=== PATIENT | female | born 1955 | race Caucasian/White ===

== ENCOUNTER 2017-02-15 20:01 | Inpatient (IN) | payer OTHER ==
[~2017-02-15] VITALS: Ht 167.6 cm; Wt 51.3 kg
[~2017-02-15 20:01] MED LIST: AMOX500T2 PO; CLAR500T PO
[2017-02-15] MEDS ORDERED: IV NS 0.9% 500 ML IV ONE (20:30)
[2017-02-15] MEDS ORDERED: IV NS 0.9% 500 ML BAG IV ONE (20:30)
[2017-02-15] MEDS ORDERED: IV SET PRIMARY 1 EA INFUS.SET MC ONE (20:30)
--- NOTE | 2017-02-15 20:30 | NUR ---
PT BIB C/O L ARM TINGLING WORSE THAN USUAL TODAY AND PER , SLURRED SPEECH EARLIER TODAY. NO FACIAL DROOP OR SLURRED SPEECH NOTED. L MANAGER MOLECULAR STRENGTH WEAK, L ARM STRENGTH WEAK. ALL OTHER EXTREMITIES STRENGTH INTACT. RESP EVEN UNLABORED. SKIN WARM NONDIAPHORETIC. DENIES PAIN. A/OX4. IN ER BED 14 ON MONITOR.
[2017-02-15 20:33] LABS: BASOPHILS % (AUTO) 0.6 % (0.0-2.0); EOSINOPHILS # (AUTO) 0.2 /CMM (0.0-0.7); EOSINOPHILS % (AUTO) 3.7 % (0.0-6.0); HEMATOCRIT 42 % (33-45); LYMPHOCYTES # (AUTO) 1.5 /CMM (0.8-4.8); LYMPHOCYTES % (AUTO) 24.1 % (20.0-44.0); MEAN CORPUSCULAR HEMOGLOBIN 30 PG (26.0-33.0); MEAN CORPUSCULAR HGB CONC 33 g/dl (31.0-36.0); MEAN CORPUSCULAR VOLUME 90 fL (82-100); MONOCYTES # (AUTO) 0.3 /CMM (0.1-1.30); MONOCYTES % (AUTO) 5.2 % (2.0-12.0); NEUTROPHILS # (AUTO) 4.3 /CMM (1.8-8.9); NEUTROPHILS % (AUTO) 66.4 % (43.0-81.0); PLATELET COUNT (AUTO) 238 /CMM (150-450); RDW COEFFICIENT OF VARIATION 12.3 (11.5-15.0); RED BLOOD CELL COUNT(AUTO) 4.65 MIL/uL (4.0-5.2); WHITE BLOOD COUNT (AUTO) 6.3 K/uL (4.3-11.0)
[2017-02-15 20:43] LABS: CARBON DIOXIDE 27 mmol/L (21-32); CHLORIDE 107 mmol/L (98-107); CREATININE 0.7 mg/dL (0.6-1.3); GFR 86 mL/min (>60); GLUCOSE 98 mg/dL (74-106); POTASSIUM 3.4 mmol/L (3.5-5.1); SODIUM SERUM 141 mmol/L (136-145); UREA NITROGEN, BLOOD 14 mg/dL (7-18)
[2017-02-15 20:46] LABS: INR 0.96 (0.87-1.13)
[2017-02-15 20:49] LABS: ALANINE AMINOTRANSFERASE 19 U/L (12-78); ALBUMIN 3.2 g/dL (3.4-5.0); ALCOHOL, BLOOD < 3 mg/dL (0-0); ALKALINE PHOSPHATASE 91 U/L (46-116); ASPARTATE AMINOTRANSFERASE 17 U/L (15-37); BILIRUBIN,DIRECT 0.1 mg/dL (0.0-0.2); BILIRUBIN,TOTAL 0.2 mg/dL (0.2-1.0); TOTAL PROTEIN, SERUM 6.3 g/dL (6.4-8.2)
[2017-02-15 20:51] LABS: TROPONIN I 0.018 ng/mL (0.00-0.056)
[2017-02-15 21:00] LABS: APPEARANCE,URINE Clear (CLEAR); BILIRUBIN,URINE Negative (NEGATIVE); BLOOD, URINE Negative Ery/uL (NEGATIVE); COLOR,URINE Yellow (YELLOW); KETONES,URINE Negative (NEGATIVE); LEUKOCYTE ESTERASE ,URINE Trace (NEGATIVE); NITRITE, URINE Negative (NEGATIVE); PROTEIN,URINE Negative (NEGATIVE); UGLUCOSE Negative (NEGATIVE); UROBILINOGEN,URINE 0.2 EU/dL (0.2)
[2017-02-15 21:14] LABS: THYROID STIMULATING HORMONE 2.378 uIU/mL (0.358-3.74)
[2017-02-15 21:14] LABS: CANNABINOID, URINE NEGATIVE (NEGATIVE); PHENCYCLIDINE SCREEN,URINE NEGATIVE (NEGATIVE)
--- NOTE | 2017-02-15 21:26 | NUR ---
PATIENT DX STROKE WILL GO TO TELE [phone]
[2017-02-15 21:41] LABS: ADD URINE CULTURE NO; BACTERIA,URINE Few /HPF (None Seen); MUCUS,URINE Few /LPF (None Seen); RBC,URINE 0-2 /HPF (0-2); SQUAMOUS EPITHELIAL CELL,UR Moderate /HPF (None Seen); URINE AMORPHOUS URATE Moderate /HPF (None Seen)
--- NOTE | 2017-02-15 21:44 | NUR ---
REPORT GIVEN TO MINA MARTINES FOR ADMISSION
[2017-02-15] MEDS ORDERED: NICARDIPINE IN DEXTROSE,ISO-OS 200 ML IV PRN (22:00)
[2017-02-15] MEDS ORDERED: MAGNESIUM HYDROXIDE 30 ML UDC PO PRN (22:00)
[2017-02-15] MEDS ORDERED: NICARDIPINE IN DEXTROSE,ISO-OS 200 ML IV ONE (22:01)
[2017-02-15] MEDS ORDERED: IV SET PRIMARY PUMP SET 1 EA INFUS.SET MC ONE ×2 (22:01→23:49)
--- NOTE | 2017-02-15 22:06 | NUR ---
PAGED DR BRANHAM
--- NOTE | 2017-02-15 22:33 | NUR ---
CARDENE GTT TITRATED TO 7.5MG/HR, BP 153/77
--- NOTE | 2017-02-15 22:45 | NUR ---
RN NOTES RECEIVED REPORT FROM ELECTRIC MILKERS INSTALLERBOBBI REED
--- NOTE | 2017-02-15 22:50 | NUR ---
CARDENE GTT INCREASED TO 10MG/HR, BP 151/70
--- NOTE | 2017-02-15 22:54 | NUR ---
REPORT GIVEN TO IWONA MARTINES FOR ADMISSION
[2017-02-15] MEDS ORDERED: ONDANSETRON HCL/PF 4 MG/2 ML VIAL IVP PRN (23:00)
[2017-02-15] MEDS ORDERED: MAG HYDROX/AL HYDROX/SIMETH 30 ML UDC PO PRN (23:00)
[2017-02-15] MEDS ORDERED: ACETAMINOPHEN 325 MG TABLET PO PRN (23:00)
[2017-02-15] MEDS ORDERED: POTASSIUM CL. PREMIX PERIPHER. 50 ML IV SCH (23:00)
[2017-02-15] MEDS ORDERED: HYDROCODONE/APAP 5/325MG 1 EACH TABLET PO PRN (23:00)
[2017-02-15] MEDS ORDERED: Z GUARD REMEDY 2 OZ OINT TP PRN (23:00)
--- NOTE | 2017-02-15 23:09 | NUR ---
PT RESTING COMFORTABLY; REMAINS AT BASELINE. NAD NOTED.
--- NOTE | 2017-02-15 23:15 | NUR ---
PT TRANSPORTED TO ICU RM 259 IN CRITICAL CONDITION VIA ACLS PROTOCOL
--- NOTE | 2017-02-15 23:20 | NUR ---
RN NOTES PATIENT ARRIVED ON THE UNIT VIA GURNEY. A/O X 3, ON ROOM AIR SATURATING WELL, APPEARS TO BE VERY ANXIOUS. PATIENT IS ON CARDENE DRIP TO KEEP SBP BETWEEN 120-140, CURRENTLY SR/ST WITH HR 90-100'S. VITALS ARE STABLE, SKIN IS INTACT. PT IS CONTINENT, ABLE TO USE BEDSIDE COMMODE WITH ASSISTANCE. RIGHT FOREARM 18G AND LEFT AC 18G BOTH INTACT, ALL FLUSHED AND PATENT, NO S/S OF INFILTRATION/INFECTION, DRESSINGS CDI. BED LOW AND LOCKED, SIDERAILS UP, CALL LIGHT WITHIN REACH. WILL MONITOR CLOSELY
[2017-02-15] MEDS ORDERED: ONDANSETRON HCL/PF 4 MG/2 ML VIAL ONE (23:50)
[2017-02-15] MEDS ORDERED: ZOLPIDEM TARTRATE 5 MG TABLET ONE (23:59)
[2017-02-16] VITALS (63 sets, daily range): BP systolic 106–161; BP diastolic 42–88
[2017-02-16] MEDS ORDERED: NICARDIPINE IN DEXTROSE,ISO-OS 200 ML IV PRN
[2017-02-16] MEDS: ZOLPIDEM TARTRATE 5 MG TABLET PO PRN ×2 (00:13→21:58)
[2017-02-16] MEDS: BLOOD SUGAR DIAGNOSTIC 1 EACH STRIP IN SCH ×4 (00:19→17:21)
[2017-02-16] MEDS ORDERED: NICARDIPINE IN DEXTROSE,ISO-OS 200 ML IV ONE (00:21)
[2017-02-16] MEDS ORDERED: POTASSIUM CHLORIDE 20 MEQ TAB.PRT.SR PO ONE ×2 (00:44→01:00)
--- NOTE | 2017-02-16 01:20 | NUR ---
RN NOTES PATIENT'S LENO NOBLE GAVE CONSENT FOR PATIENT'S 2 BOTTLES OF 10MG DIAZEPAM TABS TO BE TAKEN AWAY FROM PATIENT BAG AND SENT TO PHARMACY. PATIENT MEDICATION CHECK DONE AND SIGNED WITH ROLL WEIGHER RENEE
[2017-02-16 04:34] LABS: BASOPHILS % (AUTO) 0.4 % (0.0-2.0); EOSINOPHILS # (AUTO) 0.2 /CMM (0.0-0.7); EOSINOPHILS % (AUTO) 2.7 % (0.0-6.0); HEMATOCRIT 46 % (33-45); HEMOGLOBIN 15.2 g/dL (11.5-14.8); LYMPHOCYTES # (AUTO) 1.7 /CMM (0.8-4.8); LYMPHOCYTES % (AUTO) 21.7 % (20.0-44.0); MEAN CORPUSCULAR HEMOGLOBIN 30 PG (26.0-33.0); MEAN CORPUSCULAR HGB CONC 33 g/dl (31.0-36.0); MEAN CORPUSCULAR VOLUME 90 fL (82-100); MONOCYTES # (AUTO) 0.4 /CMM (0.1-1.30); MONOCYTES % (AUTO) 5.2 % (2.0-12.0); NEUTROPHILS # (AUTO) 5.5 /CMM (1.8-8.9); PLATELET COUNT (AUTO) 247 /CMM (150-450); RDW COEFFICIENT OF VARIATION 13.2 (11.5-15.0); RED BLOOD CELL COUNT(AUTO) 5.08 MIL/uL (4.0-5.2); WHITE BLOOD COUNT (AUTO) 7.9 K/uL (4.3-11.0)
[2017-02-16 04:47] LABS: CALCIUM, SERUM 8.3 mg/dL (8.5-10.1); CREATININE 0.7 mg/dL (0.6-1.3); MAGNESIUM 1.6 mg/dL (1.8-2.4)
--- NOTE | 2017-02-16 06:30 | NUR ---
RN CLOSING NOTES PT REMAINS STABLE OF THE MOMENT. CARDENE DRIP WAS STOPPED @ 0415, BP REMAINS TO BE WITHIN THE DESIRED RANGE. PT DENIES ANY HEADACHES. LEFT SIDE REMAINS TO BE WEAK BUT ABLE TO STAND ON STEADY GAIT. WILL ENDORSE TO AM RN
[2017-02-16] MEDS ORDERED: BLOOD SUGAR DIAGNOSTIC 1 EACH STRIP IN SCH (07:30)
--- NOTE | 2017-02-16 08:00 | NUR ---
ICU/RN INITIAL NOTES,AM RECEIVED REPORT FROM NIGHT NURSE. PT RESTING IN BED COMFORTABLY. EASILY AWAKENS AND FOLLOWS COMMANDS. PT ON ROOM AIR, NO ACUTE DISTRESS NOTED AT THIS TIME. PT ON TELE, SINUS NO ECTOPY NOTED. PT AMBULATORY, SLIGHT WEAKNESS NOTED, SKIN INTACT, PIV PATENT AND INTACT, NO S/S OF INFECTION OR INFILTRATION NOTED. POTASSIUM REPLACED OVERNIGHT. SWALLOW EVAL PENDING FOR THIS AM. ALL NEEDS WILL BE MET, SAFETY MEASURES TAKEN, BED IN LOW POSITION, SIDE RAILS UP,CALL LIGHT WITHIN REACH.
--- NOTE | 2017-02-16 10:30 | NUR ---
ICU/RN: SWALLOW EVALUATION DONE, PT PASSED, ABLE TO INDEPENDENTLY EAT AND NO S/S OF ASPIRATION NOTED.
--- NOTE | 2017-02-16 12:00 | NUR ---
ICU/RN: PT TAKEN TO CT HEAD PER MD. NO ISSUES NOTED, PT TOLERATED WELL.
[2017-02-16] MEDS ORDERED: hydrALAZINE HCL 25 MG TABLET PO PRN (13:00)
[2017-02-16] MEDS ORDERED: IV SET PRIMARY PUMP SET 1 EA INFUS.SET MC ONE (13:05)
[2017-02-16] MEDS: Magnesium 1GM/D5W 100ML PREMIX 100 ML IV SCH ×2 (13:09→14:28)
[2017-02-16] MEDS: LABETALOL HCL (100MG) 100 MG TABLET PO SCH ×2 (15:23→21:42)
--- NOTE | 2017-02-16 15:43 | NUR ---
PT REFUSING CT SCAN, RN IS AWARE.
[2017-02-16] MEDS ORDERED: IV NS 0.9% 250 ML IV ONE (16:22)
[2017-02-16] MEDS ORDERED: IOHEXOL-350 100 ML VIAL IV ONE (16:22)
--- NOTE | 2017-02-16 16:30 | NUR ---
ICU/RN: ORDERS RECEIVED FOR CTA, OBTAINED CONSENT, PT TAKEN VIA WHEEL CHAIR AND ON MONITOR, PT TOLERATED WELL, NO S/S OF ADVERSE REACTIONS, VSS.
--- NOTE | 2017-02-16 18:37 | NUR ---
ICU/RN ENDING NOTES,AM REPORT WILL BE ENDORSED TO NIGHT NURSE FOR CONTINUATION OF CARE. ALL NEEDS ATTENDED TO, PT ON ROOM AIR, NO DISTRESS NOTED AT THIS TIME. ON TELE, PT SINUS. PT ALERT, AWAKE, ORIENTED TO PERSON, PLACE AND TIME, NO ACUTE DEFICITS NOTED. WILL CLOSELY MONITOR. SAFETY MEASURES TAKEN, BED IN LOW POSITION, SIDE RAILS UP, CALL LIGHT WITHIN REACH. WILL CONTINUE CARE
--- NOTE | 2017-02-16 19:30 | NUR ---
ICU/RN RECEIVED PT AWAKE ALERT OX3.DENIES PAIN OR DISCOMFORT.OFFERS NO COMPLAINTS.
--- NOTE | 2017-02-16 22:00 | NUR ---
ICU/RN OOB TO BEDSIDE COMMODE TO VOID W/ RN IN ATTENDANCE,RETURNED TO BED W/OUT INCIDENCE AND VOIDED 450 CLEAR YELOW URINE.
[2017-02-17] VITALS (18 sets, daily range): BP systolic 99–147; BP diastolic 40–87
[2017-02-17] MEDS: BLOOD SUGAR DIAGNOSTIC 1 EACH STRIP IN SCH ×2 (00:07→06:11)
[2017-02-17 04:29] LABS: BASOPHILS % (AUTO) 0.4 % (0.0-2.0); EOSINOPHILS # (AUTO) 0.2 /CMM (0.0-0.7); EOSINOPHILS % (AUTO) 2.7 % (0.0-6.0); HEMATOCRIT 41 % (33-45); HEMOGLOBIN 13.7 g/dL (11.5-14.8); LYMPHOCYTES # (AUTO) 1.6 /CMM (0.8-4.8); LYMPHOCYTES % (AUTO) 24.6 % (20.0-44.0); MEAN CORPUSCULAR HEMOGLOBIN 30 PG (26.0-33.0); MEAN CORPUSCULAR HGB CONC 34 g/dl (31.0-36.0); MEAN CORPUSCULAR VOLUME 90 fL (82-100); MONOCYTES # (AUTO) 0.4 /CMM (0.1-1.30); MONOCYTES % (AUTO) 5.9 % (2.0-12.0); NEUTROPHILS # (AUTO) 4.3 /CMM (1.8-8.9); NEUTROPHILS % (AUTO) 66.4 % (43.0-81.0); PLATELET COUNT (AUTO) 245 /CMM (150-450); RDW COEFFICIENT OF VARIATION 13.2 (11.5-15.0); RED BLOOD CELL COUNT(AUTO) 4.57 MIL/uL (4.0-5.2); WHITE BLOOD COUNT (AUTO) 6.5 K/uL (4.3-11.0)
[2017-02-17 04:41] LABS: CALCIUM, SERUM 8.1 mg/dL (8.5-10.1); CREATININE 0.9 mg/dL (0.6-1.3); MAGNESIUM 1.8 mg/dL (1.8-2.4); POTASSIUM 3.6 mmol/L (3.5-5.1)
--- NOTE | 2017-02-17 05:42 | NUR ---
ICU/RN VITAL SIGNS STABLE.REFUSED BED BATH.MONITOR SINUS RHYTHM W/OUT ECTOPICS.
--- NOTE | 2017-02-17 08:25 | NUR ---
ICU/RN INITIAL NOTES,AM RECEIVED REPORT FROM NIGHT NURSE. PT RESTING IN BED COMFORTABLY. EASILY AWAKENS AND FOLLOWS COMMANDS. PT ON ROOM AIR, NO ACUTE DISTRESS NOTED AT THIS TIME. PT ON TELE, SINUS RHYTHM/SINUS TANK, NO ECTOPY NOTED. PT AMBULATORY, SLIGHT WEAKNESS NOTED, SKIN INTACT, PIV PATENT AND INTACT, NO S/S OF INFECTION OR INFILTRATION NOTED.SAFETY MEASURES TAKEN, BED IN LOW POSITION, SIDE RAILS UP,CALL LIGHT WITHIN REACH.
[2017-02-17] MEDS ORDERED: BLOOD IV SET 1 EA INFUS.SET MC ONE (08:32)
[2017-02-17] MEDS ORDERED: IV NS 0.9% 250 ML IV ONE (08:33)
[2017-02-17] MEDS: LABETALOL HCL (100MG) 100 MG TABLET PO SCH ×2 (09:11→21:38)
[2017-02-17] MEDS ORDERED: LORAZEPAM INJ 2 MG/ML VIAL IV PRN (11:30)
--- NOTE | 2017-02-17 14:00 | NUR ---
ICU/RN: PT TRANSFERRED TO 3W. REPORT ENDORSED AT BEDSIDE. ALL NEEDS MET. SAFETY MEASURES TAKEN.
--- NOTE | 2017-02-17 14:20 | NUR ---
ms rn received from icu, via wheelchair,awake,alert,oriented x4,not in any form of distress, respirations even and unlabored,no sob noted, nsr on monitor ,will monitor patient's condition.
[2017-02-17] MEDS: DIAZEPAM 2 MG TABLET PO PRN (15:24)
--- NOTE | 2017-02-17 17:00 | NUR ---
ms rn on bed, w/ on bedside,all needs attended.
--- NOTE | 2017-02-17 19:20 | NUR ---
EMBEDDED NURSE NOTES RECEIVED PT IN BED, EATING AT THIS TIME. ALERT, ORIENTED X 4. NO ACUTE DISTRESS NO SOB AT THIS TIME. RESPIRATION IS EVEN AND UNLABORED. IV H/L ON RIGHT WRIST INTACT AND PATENT, NO INFILTRATION NOTED. NO C/O PAIN OR DISCOMFORT AT THIS TIME. AFEBRILE. ALL NEEDS AT THIS TIME ATTENDED AND MET. KEPT COMFORTABLE. CALL LIGHT WITHIN REACH. WILL CONTINUE TO MONITOR.
--- NOTE | 2017-02-17 19:58 | NUR ---
WASHTUB WORKER HELPER NOTES IV HL ON LAC DC'D, PRESSURE APPLIED. NO BLEEDING AT THIS TIME.
[2017-02-17] MEDS: ZOLPIDEM TARTRATE 5 MG TABLET PO PRN (21:35)
[2017-02-18] VITALS: BP 123/68
--- NOTE | 2017-02-18 03:15 | NUR ---
SAWMILL WORKER NOTES PT ASLEEP AT THIS TIME, AROUSABLE. NO ACUTE DISTRESS, NO SOB AT THIS TIME. RESPIRATION IS EVEN AND UNLABORED. ALL NEEDS ATTENDED. CALL LIGHT WITHIN REACH. WILL CONT TO MONITOR.
[2017-02-18 04:00] VITALS: BP 127/78
--- NOTE | 2017-02-18 07:20 | NUR ---
SALVAGE ENGINEERING TECHNICIAN NOTES PT IN BED, ASLEEP AT THIS TIME. AROUSABLE. PT ALERT, ORIENTED X 4. NO ACUTE DISTRESS NO SOB AT THIS TIME. RESPIRATION IS EVEN AND UNLABORED. IV H/L ON RIGHT WRIST INTACT AND PATENT, NO INFILTRATION NOTED. NO C/O PAIN OR DISCOMFORT AT THIS TIME. AFEBRILE. ALL NEEDS ATTENDED AND MET. KEPT COMFORTABLE. CALL LIGHT WITHIN REACH. WILL ENDORSE TO NEXT SHIFT FOR LAKESHIA.
[2017-02-18 07:22] VITALS: BP 148/77
[2017-02-18] MEDS: DIAZEPAM 2 MG TABLET PO PRN (08:39)
[2017-02-18 08:40] VITALS: BP 148/77
[2017-02-18] MEDS: LABETALOL HCL (100MG) 100 MG TABLET PO SCH (08:40)
--- NOTE | 2017-02-18 09:35 | NUR ---
SALES AMBASSADOR NOTES PT IN BED, ASLEEP, EASY TO AROUSE, ALERT AND ORIENTED, NO COMPLAINT OF PAIN, BREATHING PATTERN NORMAL, CALL LIGHT WITHIN REACH, KEPT FASHION SUPERVISOR BED.
[2017-02-18] MEDS ORDERED: LABE100T PO (12:12)
[2017-02-18] MEDS ORDERED: Magnesium 1 GM/2 ML VIAL IV ONE (13:01)
[2017-02-18] MEDS ORDERED: EPINEPHRINE (1:10,000) SYRINGE 1 MG/10 ML DISP.SYRIN IVP ONE (13:01)
[2017-02-18] MEDS ORDERED: ATROPINE SULFATE 1 MG/10 ML DISP.SYRIN IV ONE (13:01)
[2017-02-18] MEDS ORDERED: DEXTROSE 50%-WATER 50 ML DISP.SYRIN IV ONE (13:01)
[2017-02-18] MEDS ORDERED: SODIUM BICARBONATE SYR 50 MEQ/50 ML DISP.SYRIN IV ONE (13:01)
--- NOTE | 2017-02-18 14:19 | NUR ---
REGIONAL OFFICE COORDINATOR NOTES PT IN BED, AWAKE, ALERT AND ORIENTED, NO COMPLAINT OF PAIN, NOT IN DISTRESS, PT SEEN BY PHYSICAL THERAPIST, ABLE TO AMBULATE WITH STEADY GAIT WITH A WALKER, PT SEEN BY DR. HERNANDEZ, DISCHARGE ORDER GIVEN, DISCHARGE AND MEDICATION INSTRUCTIONS PROVIDED TO PT AND PT'S DAUGHTER, VERBALIZED UNDERSTANDING, BELONGINGS ACCOUNTED FOR, 2 BOTTLES OF PT'S OWN MEDICATION PICKED UP FROM PHARMACY, RECEIVED BY PT'S DAUGHTER, ASSISTED TO HOSPITAL LOBBY VIA WHEELCHAIR, LEFT IN STABLE CONDITION, PT ALSO DISCHARGED WITH NEW PRESCRIPTION FOR LIPITOR, FAXED PRESCRIPTIONS TO PT'S OWN PHARMACY, CONFIRED RECEIPT, CALLED PT AT HER HOME ([phone])TO INFORM HER OF THE NEW ORDERED LIPITOR BUT NOBODY PICKS UP THE PHONE, CALLED PT'S DAUGHTER BETI ([phone]) AND LEFT A MESSAGE REGARDING PT'S NEW PRESCRIPTION.
== END 2017-02-18 13:02 | disposition home or self-care (01) | DRG 44 ==
LOC: ER 20:05 → TELE 21:42 → ICU 22:41 → TELE 02-17 13:33
PROVIDERS: ADMIT Family Medicine; ATTEND Family Medicine
DX: I61.0 Nontraumatic intracerebral hemorrhage in hemisphere, subcortical (principal); E44.1 Mild protein-calorie malnutrition; I10 Essential (primary) hypertension; E87.6 Hypokalemia; I16.1 Hypertensive emergency; K21.9 Gastro-esophageal reflux disease without esophagitis; Z87.891 Personal history of nicotine dependence; Z87.11 Personal history of peptic ulcer disease; F14.90 Cocaine use, unspecified, uncomplicated; E78.5 Hyperlipidemia, unspecified; E83.42 Hypomagnesemia; F13.20 Sedative, hypnotic or anxiolytic dependence, uncomplicated; F41.9 Anxiety disorder, unspecified; G47.00 Insomnia, unspecified; Z91.19 Patient's noncompliance with other medical treatment and regimen
CPT/HCPCS: 36415; 70450-TC; 70496-TC; 71010-TC; 80048-TC; 80061-TC; 80076-TC; 80305; 81000-TC; 82962-TC; 83735-TC; 84100-TC; 84443-TC; 84484-TC; 85025-TC; 85385-TC; 85730-TC; 87081-TC; 92611-TC; 93307-TC; 97001-TC; 97003-TC; 97110-TC; 97116-TC; 97530-TC; 97535-TC; A4606; G0480; J0171; J0461; J2405; J3475; J3490; J7040; J7050; Q9967; Z7610